=== PATIENT | male | born 1975 | race Caucasian/White ===

== ENCOUNTER 2017-11-03 09:43 | Emergency (ER) | payer MEDICAID, OTHER ==
[~2017-11-03] VITALS: Ht 162.6 cm; Wt 86.0 kg
[2017-11-03 16:49] VITALS: BP 120/85
== END 2017-11-03 16:51 | disposition home or self-care (01) ==
LOC: ER 10:43
DX: R05 Cough (principal); T14.8XXA Other injury of unspecified body region, initial encounter; X58.XXXA Exposure to other specified factors, initial encounter; Y93.89 Activity, other specified; Y92.89 Other specified places as the place of occurrence of the external cause; I10 Essential (primary) hypertension; F17.210 Nicotine dependence, cigarettes, uncomplicated
CPT/HCPCS: 71045; 99283

== ENCOUNTER 2018-07-09 12:17 | Emergency (ER) | payer OTHER ==
[~2018-07-09] VITALS: Ht 162.6 cm; Wt 86.5 kg
[2018-07-09] MEDS ORDERED: SODIUM CHLORIDE 0.9% 1,000 ML IV ONE (18:38)
[2018-07-09] MEDS ORDERED: ONDANSETRON HCL 4MG/2ML INJ IV STA (18:38)
[2018-07-09 19:54] LABS: BASOPHILS % 0.9 % (0.0-2.0); EOSINOPHILS % 1.8 % (0.0-5.0); HEMOGLOBIN. 15.7 g/dL (14.0-18.0); LYMPHOCYTES % 27.4 % (20.0-50.0); MEAN CORPUSCULAR HEMOGLOBIN 31.7 pg (28.0-32.0); MEAN CORPUSCULAR VOLUME 92.9 fL (80.0-94.0); MEAN PLATELET VOLUME 8.3 fl (7.4-10.4); MONOCYTES % 12.4 % (2.0-8.0); NEUTROPHILS % 57.5 % (40.0-76.0); PLATELET 170 x1000/uL (130-400); RED BLOOD CELL COUNT 4.95 mill/uL (4.7-6.1); RED CELL DISTRIBUTION WIDTH 12.8 % (11.6-14.6)
[2018-07-09 20:01] LABS: CHLORIDE 103 mEq/L (98-107)
[2018-07-09 20:24] LABS: CLARITY URINE CLEAR (CLEAR); COLOR URINE YELLOW (YELLOW); KETONES URINE NEGATIVE (NEGATIVE); LEUKOCYTE ESTERASE URINE NEGATIVE (NEGATIVE); NITRITE URINE NEGATIVE (NEGATIVE); OCCULT BLOOD URINE NEGATIVE (NEGATIVE); PH URINE 6.5 (4.5-8.0); PROTEIN URINE NEGATIVE (NEGATIVE); SPECIFIC GRAVITY URINE 1.013 (1.005-1.030)
[2018-07-09 21:15] VITALS: BP 135/95
== END 2018-07-09 21:22 | disposition home or self-care (01) ==
LOC: ER 13:40
DX: J98.9 Respiratory disorder, unspecified (principal); B97.89 Other viral agents as the cause of diseases classified elsewhere; I10 Essential (primary) hypertension; F17.200 Nicotine dependence, unspecified, uncomplicated; R11.10 Vomiting, unspecified
CPT/HCPCS: 36415; 71045; 80053; 81003; 85025; 87804; 96361; 96374; 99284; J2405; J7030

== ENCOUNTER 2020-07-09 08:57 | Emergency (ER) | payer OTHER ==
[~2020-07-09] VITALS: Ht 162.6 cm; Wt 91.0 kg
[2020-07-09] MEDS ORDERED: ONDANSETRON 4MG ODT PO STA (09:08)
[2020-07-09 09:41] LABS: BASOPHILS % 1.2 % (0.0-2.0); EOSINOPHILS % 0.6 % (0.0-5.0); HEMATOCRIT. 32.7 % (42.0-52.0); HEMOGLOBIN. 9.9 g/dL (14.0-18.0); LYMPHOCYTES % 25.6 % (20.0-50.0); MEAN CORPUSCULAR HEMOGLOBIN 19.3 pg (28.0-32.0); MEAN CORPUSCULAR VOLUME 64.2 fL (80.0-94.0); MEAN PLATELET VOLUME 8.4 fl (7.4-10.4); MONOCYTES % 13.6 % (2.0-8.0); PLATELET 317 x1000/uL (130-400); RED CELL DISTRIBUTION WIDTH 21.6 % (11.6-14.6)
[2020-07-09 09:47] LABS: CHLORIDE 100 mEq/L (98-107)
[2020-07-09 09:50] LABS: INR 1.1; PROTHROMBIN TIME 11.2 sec (9.6-11.0)
[2020-07-09 10:49] LABS: PLATELET ESTIMATE NORMAL
[2020-07-09 13:18] LABS: CLARITY URINE CLEAR (CLEAR); COLOR URINE ORANGE (YELLOW); KETONES URINE 1+ (NEGATIVE); LEUKOCYTE ESTERASE URINE 1+ (NEGATIVE); NITRITE URINE POSITIVE (NEGATIVE); OCCULT BLOOD URINE NEGATIVE (NEGATIVE); PH URINE 6.5 (4.5-8.0); PROTEIN URINE 2+ (NEGATIVE)
[2020-07-09] MEDS ORDERED: MAGNESIUM/ALUMINUM HYDROXIDE/SIMETHICONE 30ML UDC PO STA (13:32)
[2020-07-09 14:09] LABS: *AMPHETAMINES SCREEN URINE NEGATIVE (NEGATIVE); *BARBITURATES SCREEN URINE NEGATIVE (NEGATIVE); *BENZODIAZEPINES SCREEN URINE NEGATIVE (NEGATIVE); *COCAINE SCREEN URINE NEGATIVE (NEGATIVE); METHADONE URINE SCREEN NEGATIVE (NEGATIVE); OPIATES URINE SCREEN NEGATIVE (NEGATIVE)
[2020-07-09 14:11] LABS: CANNABINOID URINE SCREEN NEGATIVE (NEGATIVE); PHENCYCLIDINE URINE SCREEN NEGATIVE (NEGATIVE)
[2020-07-09] MEDS ORDERED: SODIUM CHLORIDE 0.9% 1,000 ML IV ONE (14:15)
[2020-07-09] MEDS ORDERED: CEFTRIAXONE 1 G PREMIX 50 ML IV ONE (14:15)
[2020-07-09] MEDS ORDERED: ONDANSETRON HCL 4MG/2ML INJ IV ONE (14:15)
[2020-07-09] MEDS ORDERED: CEFTRIAXONE SODIUM 500 MG/VIAL IM ONE (14:30)
[2020-07-09 14:44] VITALS: BP 167/97
== END 2020-07-09 14:46 | disposition home or self-care (01) ==
LOC: ER 08:57
DX: N39.0 Urinary tract infection, site not specified (principal); R00.0 Tachycardia, unspecified; I10 Essential (primary) hypertension; D50.9 Iron deficiency anemia, unspecified
CPT/HCPCS: 36415; 80053; 80305; 81003; 83605; 83690; 84484; 85025; 85610; 96372; 99283; J0696; J7030; Q0162

== ENCOUNTER 2020-07-22 11:48 | Inpatient (IN) | payer OTHER ==
[~2020-07-22] VITALS: Ht 162.6 cm; Wt 93.6 kg
[2020-07-22] MEDS ORDERED: LABETALOL 5MG/ML SYR 20 MG/4 ML SYRINGE IV ONE (12:30)
[2020-07-22 12:57] LABS: BASOPHILS % 0.9 % (0.0-2.0); HEMATOCRIT. 31.8 % (42.0-52.0); HEMOGLOBIN. 9.6 g/dL (14.0-18.0); MEAN CORPUSCULAR HEMOGLOBIN 19.3 pg (28.0-32.0); MEAN CORPUSCULAR VOLUME 63.8 fL (80.0-94.0); MEAN PLATELET VOLUME 8.4 fl (7.4-10.4); MONOCYTES % 5.4 % (2.0-8.0); NEUTROPHILS % 82.7 % (40.0-76.0); PLATELET 342 x1000/uL (130-400); RED BLOOD CELL COUNT 4.99 mill/uL (4.7-6.1); RED CELL DISTRIBUTION WIDTH 21.8 % (11.6-14.6)
[2020-07-22 13:05] LABS: CHLORIDE 104 mEq/L (98-107)
[2020-07-22 13:09] LABS: ETHANOL BLOOD < 10 mg/dL
[2020-07-22 13:25] LABS: PLATELET ESTIMATE NORMAL
[2020-07-22 14:05] LABS: CLARITY URINE CLEAR (CLEAR); COLOR URINE YELLOW (YELLOW); KETONES URINE NEGATIVE (NEGATIVE); LEUKOCYTE ESTERASE URINE NEGATIVE (NEGATIVE); NITRITE URINE NEGATIVE (NEGATIVE); OCCULT BLOOD URINE NEGATIVE (NEGATIVE); PROTEIN URINE NEGATIVE (NEGATIVE); SPECIFIC GRAVITY URINE 1.016 (1.005-1.030); UROBILINOGEN URINE 0.2 E.U./dL (0.2-1.0)
[2020-07-22] MEDS ORDERED: SODIUM CHLORIDE 0.9% 1,000 ML IV ONE (14:30)
[2020-07-22 14:31] LABS: *AMPHETAMINES SCREEN URINE NEGATIVE (NEGATIVE); *BARBITURATES SCREEN URINE NEGATIVE (NEGATIVE); *BENZODIAZEPINES SCREEN URINE NEGATIVE (NEGATIVE)
[2020-07-22 14:32] LABS: *COCAINE SCREEN URINE NEGATIVE (NEGATIVE); CANNABINOID URINE SCREEN NEGATIVE (NEGATIVE); METHADONE URINE SCREEN NEGATIVE (NEGATIVE); OPIATES URINE SCREEN NEGATIVE (NEGATIVE); PHENCYCLIDINE URINE SCREEN NEGATIVE (NEGATIVE)
[2020-07-22] MEDS ORDERED: ACETAMINOPHEN 325MG TABLET PO PRN ×2 (15:45)
[2020-07-22] MEDS ORDERED: NITROGLYCERIN 0.4MG TABLET SL SL PRN (15:45)
[2020-07-22] MEDS ORDERED: MAGNESIUM/ALUMINUM HYDROXIDE/SIMETHICONE 30ML UDC PO PRN (15:45)
[2020-07-22] MEDS ORDERED: CLONIDINE 0.1MG TABLET PO PRN (15:45)
[2020-07-22] MEDS ORDERED: ONDANSETRON HCL 4MG/2ML INJ IV PRN (15:45)
[2020-07-22] MEDS ORDERED: POTASSIUM CHLORIDE 20MEQ TABLET SR PO NR (15:45)
[2020-07-22] MEDS ORDERED: IPRATROPIUM/ALBUTEROL 0.5-3(2.5)MG/3ML NEB NEB PRN (15:45)
[2020-07-22] MEDS ORDERED: KETOROLAC 15MG/ML VIAL IV PRN (15:45)
[2020-07-22] MEDS ORDERED: GUAIFENESIN 200MG/10ML SUGAR FREE UDC PO PRN (15:45)
[2020-07-22] MEDS ORDERED: ZOLPIDEM TARTRATE 5MG TABLET PO PRN (15:45)
[2020-07-22] MEDS ORDERED: DOCUSATE SODIUM 100MG CAPSULE PO PRN (15:45)
[2020-07-22] MEDS ORDERED: ENOXAPARIN 40MG/0.4ML SYR SUBCUT SCH (16:00)
[2020-07-22] MEDS ORDERED: ASPIRIN 325MG EC TABLET PO SCH (16:00)
[2020-07-22 16:21] LABS: FOLIC ACID (FOLATE) SERUM 6.1 ng/mL (>5.38)
[2020-07-22] MEDS: DEXT 5%/LACTATED RINGERS 1,000 ML IV SCH (16:30)
[2020-07-22 17:51] LABS: HEMATOCRIT 28.5 % (42.0-52.0); HEMOGLOBIN 8.5 g/dL (14.0-18.0); MEAN CORPUSCULAR HEMOGLOBIN 19.2 pg (28.0-32.0); MEAN CORPUSCULAR VOLUME 64.5 fL (80.0-94.0); PLATELET 297 x1000/uL (130-400); RED BLOOD CELL COUNT 4.42 mill/uL (4.7-6.1); RED CELL DISTRIBUTION WIDTH 22.2 % (11.6-14.6)
[2020-07-22] MEDS ORDERED: PANTOPRAZOLE 80 MG in SODIUM CHLORIDE 0.9% 100 ML IV SCH (18:00)
[2020-07-22 18:09] LABS: INR 1.1; PROTHROMBIN TIME 11.7 sec (9.6-11.0)
[2020-07-22] MEDS: PANTOPRAZOLE 80 MG in SODIUM CHLORIDE 0.9% 100 ML IV SCH (18:49)
[2020-07-22] MEDS ORDERED: FAMOTIDINE 20MG TABLET PO SCH (21:00)
[2020-07-22] MEDS ORDERED: ASCORBIC ACID 500 MG TABLET PO SCH (21:00)
[2020-07-23 00:19] LABS: CREATINE KINASE 218 IU/L (39-308)
[2020-07-23 00:20] LABS: CREATINE KINASE MB FRACTION 2.5 ng/mL (0.5-3.6)
[2020-07-23 04:38] LABS: BASOPHILS % 0.9 % (0.0-2.0); EOSINOPHILS % 0.3 % (0.0-5.0); HEMATOCRIT. 28.7 % (42.0-52.0); HEMOGLOBIN. 8.6 g/dL (14.0-18.0); LYMPHOCYTES % 30.7 % (20.0-50.0); MEAN CORPUSCULAR HEMOGLOBIN 19.3 pg (28.0-32.0); MEAN CORPUSCULAR VOLUME 64.4 fL (80.0-94.0); MEAN PLATELET VOLUME 8.3 fl (7.4-10.4); MONOCYTES % 8.9 % (2.0-8.0); NEUTROPHILS % 59.2 % (40.0-76.0); PLATELET 283 x1000/uL (130-400); RED BLOOD CELL COUNT 4.46 mill/uL (4.7-6.1); RED CELL DISTRIBUTION WIDTH 22.5 % (11.6-14.6)
[2020-07-23] MEDS: PANTOPRAZOLE 80 MG in SODIUM CHLORIDE 0.9% 100 ML IV SCH ×2 (04:40→14:00)
[2020-07-23 04:41] LABS: CHLORIDE 107 mEq/L (98-107)
[2020-07-23 04:49] LABS: PHOSPHORUS 2.8 mg/dL (2.5-4.9)
[2020-07-23 04:52] LABS: CREATINE KINASE 214 IU/L (39-308)
[2020-07-23 04:55] LABS: CREATINE KINASE MB FRACTION 2.6 ng/mL (0.5-3.6)
[2020-07-23] MEDS ORDERED: CHOLECALCIFEROL (D3) 1000 UNIT TABLET PO SCH (09:00)
[2020-07-23] MEDS ORDERED: ZINC SULFATE 220 MG ( 50 ) CAPSULE PO SCH (09:00)
[2020-07-23] MEDS: METOPROLOL TARTRATE 25MG TABLET PO SCH ×2 (22:22→22:23)
[2020-07-24] MEDS: PANTOPRAZOLE 80 MG in SODIUM CHLORIDE 0.9% 100 ML IV SCH ×3 (00:36→22:15)
[2020-07-24 04:05] LABS: BASOPHILS % 1.2 % (0.0-2.0); EOSINOPHILS % 0.9 % (0.0-5.0); HEMATOCRIT. 30.1 % (42.0-52.0); HEMOGLOBIN. 8.9 g/dL (14.0-18.0); LYMPHOCYTES % 20.9 % (20.0-50.0); MEAN CORPUSCULAR VOLUME 64.2 fL (80.0-94.0); MEAN PLATELET VOLUME 8.5 fl (7.4-10.4); MONOCYTES % 8.7 % (2.0-8.0); NEUTROPHILS % 68.3 % (40.0-76.0); PLATELET 302 x1000/uL (130-400); RED BLOOD CELL COUNT 4.69 mill/uL (4.7-6.1); RED CELL DISTRIBUTION WIDTH 21.7 % (11.6-14.6)
[2020-07-24 04:13] LABS: CHLORIDE 105 mEq/L (98-107)
[2020-07-24 04:41] LABS: PLATELET ESTIMATE NORMAL
[2020-07-24 05:50] VITALS: BP 140/91
[2020-07-24 08:00] VITALS: BP 127/76
[2020-07-24] MEDS: METOPROLOL TARTRATE 25MG TABLET PO SCH ×2 (09:10→22:13)
[2020-07-24 11:37] LABS: FERRITIN 22 ng/mL (22-322)
[2020-07-24 11:48] LABS: HEPATITIS B SURFACE ANTIGEN NEGATIVE
[2020-07-24 12:00] VITALS: BP 110/70
[2020-07-24 12:18] LABS: HEPATITIS A AB IGM NEGATIVE (NEGATIVE)
[2020-07-24 18:11] VITALS: BP 110/71
[2020-07-24] MEDS: DEXT 5%/LACTATED RINGERS 1,000 ML IV SCH (18:36)
[2020-07-24 20:00] VITALS: BP 124/76
[2020-07-24] MEDS ORDERED: PANTOPRAZOLE SODIUM 40 MG/VIAL IV ONE (21:09)
[2020-07-25] VITALS: BP 138/75
[2020-07-25] MEDS: DEXT 5%/LACTATED RINGERS 1,000 ML IV SCH ×3 (00:01→16:37)
[2020-07-25 04:00] VITALS: BP 114/71
[2020-07-25 08:00] VITALS: BP 151/82
[2020-07-25] MEDS: METOPROLOL TARTRATE 25MG TABLET PO SCH (09:25)
[2020-07-25] MEDS: PANTOPRAZOLE 80 MG in SODIUM CHLORIDE 0.9% 100 ML IV SCH ×2 (09:25→15:44)
[2020-07-25] MEDS: IRON SUCROSE COMPLEX 100 MG/5 ML ML IV SCH (10:42)
[2020-07-25 12:00] VITALS: BP 101/60
[2020-07-25 16:00] VITALS: BP 127/82
[2020-07-25 20:00] VITALS: BP 109/64
[2020-07-26] VITALS: BP 134/76
[2020-07-26] MEDS: METOPROLOL TARTRATE 25MG TABLET PO SCH ×2 (01:08→09:08)
[2020-07-26 08:00] VITALS: BP 120/82
[2020-07-26] MEDS: DEXT 5%/LACTATED RINGERS 1,000 ML IV SCH (08:30)
[2020-07-26] MEDS: IRON SUCROSE COMPLEX 100 MG/5 ML ML IV SCH (09:08)
[2020-07-26 10:19] VITALS: BP 120/82
[2020-07-26 10:43] LABS: BASOPHILS % 1.6 % (0.0-2.0); EOSINOPHILS % 2.2 % (0.0-5.0); HEMATOCRIT. 29.1 % (42.0-52.0); HEMOGLOBIN. 8.7 g/dL (14.0-18.0); LYMPHOCYTES % 18.1 % (20.0-50.0); MEAN CORPUSCULAR HEMOGLOBIN 19.9 pg (28.0-32.0); MEAN CORPUSCULAR VOLUME 66.4 fL (80.0-94.0); MEAN PLATELET VOLUME 8.8 fl (7.4-10.4); MONOCYTES % 9.3 % (2.0-8.0); NEUTROPHILS % 68.8 % (40.0-76.0); PLATELET 270 x1000/uL (130-400); RED BLOOD CELL COUNT 4.38 mill/uL (4.7-6.1); RED CELL DISTRIBUTION WIDTH 21.2 % (11.6-14.6)
[2020-07-26 12:00] VITALS: BP 111/81
[2020-07-26] MEDS: PANTOPRAZOLE 80 MG in SODIUM CHLORIDE 0.9% 100 ML IV SCH (12:00)
== END 2020-07-26 12:05 | disposition home or self-care (01) | DRG 312 ==
LOC: ER 11:48 → MICUSO 14:37 → SUPCPDRO 16:27 → 5WST 07-23 14:43 → MICUSO 07-23 16:05 → 5WST 07-24 04:05
PROVIDERS: ADMIT Internal Medicine; ATTEND Internal Medicine
DX: R55 Syncope and collapse (principal); E87.2 Acidosis; D50.9 Iron deficiency anemia, unspecified; E87.6 Hypokalemia; I10 Essential (primary) hypertension; F10.10 Alcohol abuse, uncomplicated; M54.9 Dorsalgia, unspecified
CPT/HCPCS: 36415; 71045; 76700; 80053; 80061; 80305; 80320; 81003; 82270; 82550; 82553; 82607; 82728; 82746; 83036; 83540; 83550; 83605; 83735; 83880; 84100; 84145; 84484; 85025; 85027; 85379; 86705; 86709; 86803; 86850; 86900; 87340; 93005; 93970; 96372; 99285; C9113; J1650; J7030; J7050; G0480

== ENCOUNTER 2020-07-28 08:50 | Emergency (ER) | payer OTHER ==
[~2020-07-28] VITALS: Ht 162.6 cm; Wt 92.0 kg
[2020-07-28] MEDS ORDERED: IBUPROFEN 600MG TABLET PO ONE (09:30)
[2020-07-28 09:55] VITALS: BP 131/95
== END 2020-07-28 09:57 | disposition home or self-care (01) ==
LOC: ER 08:50
DX: M79.622 Pain in left upper arm (principal); I80.9 Phlebitis and thrombophlebitis of unspecified site; I10 Essential (primary) hypertension
CPT/HCPCS: 93005; 99283

== ENCOUNTER 2021-06-10 01:55 | Emergency (ER) | payer MEDICAID, OTHER ==
[~2021-06-10] VITALS: Ht 162.6 cm; Wt 91.0 kg
[2021-06-10] MEDS ORDERED: HYDROCODONE/ACETAMINOPHEN 5/325MG TABLET PO ONE (03:45)
[2021-06-10 03:54] VITALS: BP 153/91
[2021-06-10] MEDS ORDERED: T3 PO (04:00)
== END 2021-06-10 04:19 | disposition home or self-care (01) ==
LOC: ER 01:55
DX: S60.011A Contusion of right thumb without damage to nail, initial encounter (principal); W22.8XXA Striking against or struck by other objects, initial encounter; Y93.89 Activity, other specified; Y92.89 Other specified places as the place of occurrence of the external cause
CPT/HCPCS: 29130; 73140; 99283

== ENCOUNTER 2021-07-12 08:33 | Inpatient (IN) | payer MEDICAID ==
[~2021-07-12] VITALS: Ht 162.6 cm; Wt 94.8 kg
[~2021-07-12 08:33] MED LIST: T3 PO
[2021-07-12] MEDS ORDERED: ONDANSETRON HCL 4MG/2ML INJ IV STA (08:35)
[2021-07-12] MEDS ORDERED: SODIUM CHLORIDE 0.9% 1,000 ML IV ONE ×2 (08:45→12:15)
[2021-07-12 09:16] LABS: BASOPHILS % 2.9 % (0.0-2.0); EOSINOPHILS % 0.3 % (0.0-5.0); HEMATOCRIT. 31.3 % (42.0-52.0); HEMOGLOBIN. 9.6 g/dL (14.0-18.0); LYMPHOCYTES % 30.3 % (20.0-50.0); MEAN CORPUSCULAR HEMOGLOBIN 19.3 pg (28.0-32.0); MEAN CORPUSCULAR VOLUME 62.7 fL (80.0-94.0); MEAN PLATELET VOLUME 8.5 fl (7.4-10.4); MONOCYTES % 12.2 % (2.0-8.0); NEUTROPHILS % 54.3 % (40.0-76.0); PLATELET 325 x1000/uL (130-400); RED BLOOD CELL COUNT 4.99 mill/uL (4.7-6.1); RED CELL DISTRIBUTION WIDTH 24.4 % (11.6-14.6)
[2021-07-12 09:23] LABS: CHLORIDE 102 mEq/L (98-107)
[2021-07-12] MEDS ORDERED: ACETAMINOPHEN 325MG TABLET PO ONE (09:30)
[2021-07-12] MEDS ORDERED: ONDANSETRON HCL 4MG/2ML INJ IV ONE (09:45)
[2021-07-12 09:50] LABS: PLATELET ESTIMATE NORMAL
[2021-07-12] MEDS ORDERED: KETOROLAC 30MG/ML VIAL IV ONE (10:15)
[2021-07-12] MEDS ORDERED: LORAZEPAM 2MG/ML CPJ IV ONE (11:00)
[2021-07-12 12:22] LABS: CLARITY URINE CLEAR (CLEAR); COLOR URINE DARK YELLOW (YELLOW); KETONES URINE TRACE (NEGATIVE); LEUKOCYTE ESTERASE URINE TRACE (NEGATIVE); NITRITE URINE NEGATIVE (NEGATIVE); OCCULT BLOOD URINE NEGATIVE (NEGATIVE); PROTEIN URINE 1+ (NEGATIVE); SPECIFIC GRAVITY URINE 1.032 (1.005-1.030)
[2021-07-12] MEDS ORDERED: AZITHROMYCIN 500MG/250ML 250 ML IV ONE (12:45)
[2021-07-12] MEDS ORDERED: CEFTRIAXONE 1 G PREMIX 50 ML IV ONE (12:45)
[2021-07-12 12:56] LABS: *AMPHETAMINES SCREEN URINE NEGATIVE (NEGATIVE); *BARBITURATES SCREEN URINE NEGATIVE (NEGATIVE); *BENZODIAZEPINES SCREEN URINE NEGATIVE (NEGATIVE); *COCAINE SCREEN URINE NEGATIVE (NEGATIVE)
[2021-07-12 12:57] LABS: CANNABINOID URINE SCREEN NEGATIVE (NEGATIVE); OPIATES URINE SCREEN NEGATIVE (NEGATIVE); PHENCYCLIDINE URINE SCREEN NEGATIVE (NEGATIVE)
[2021-07-12 12:59] LABS: METHADONE URINE SCREEN NEGATIVE (NEGATIVE)
[2021-07-12] MEDS: ONDANSETRON HCL 4MG/2ML INJ IV PRN (20:39)
[2021-07-12 23:16] VITALS: BP 137/78
[2021-07-13] MEDS ORDERED: CEFTRIAXONE 1 G PREMIX 50 ML IV SCH
[2021-07-13] MEDS ORDERED: IPRATROPIUM/ALBUTEROL 0.5-3(2.5)MG/3ML NEB HHN PRN
[2021-07-13] MEDS ORDERED: ACETAMINOPHEN 325MG TABLET PO PRN
[2021-07-13] MEDS ORDERED: POTASSIUM CHLORIDE 20MEQ TABLET SR PO NR (00:30)
[2021-07-13] MEDS: ONDANSETRON HCL 4MG/2ML INJ IV PRN (05:14)
[2021-07-13 07:55] LABS: CHLORIDE 107 mEq/L (98-107)
[2021-07-13 08:00] VITALS: BP 134/78
[2021-07-13 08:03] LABS: EOSINOPHILS % 0.4 % (0.0-5.0); HEMATOCRIT. 26.1 % (42.0-52.0); HEMOGLOBIN. 7.8 g/dL (14.0-18.0); LYMPHOCYTES % 27.3 % (20.0-50.0); MEAN CORPUSCULAR HEMOGLOBIN 19.2 pg (28.0-32.0); MEAN CORPUSCULAR VOLUME 64.5 fL (80.0-94.0); MEAN PLATELET VOLUME 8.6 fl (7.4-10.4); MONOCYTES % 13.9 % (2.0-8.0); NEUTROPHILS % 57.4 % (40.0-76.0); PLATELET 215 x1000/uL (130-400); RED BLOOD CELL COUNT 4.04 mill/uL (4.7-6.1); RED CELL DISTRIBUTION WIDTH 23.9 % (11.6-14.6)
[2021-07-13] MEDS: LOSARTAN POTASSIUM 50 MG TABLET PO SCH (11:12)
[2021-07-13 12:00] VITALS: BP 127/76
[2021-07-13] MEDS: CEFTRIAXONE 1,000 MG in DEXTROSE 5% WATER 50 ML IV SCH (13:40)
[2021-07-13] MEDS: AZITHROMYCIN 500 MG in DEXT 5% WATER 250 ML IV SCH (14:39)
[2021-07-13 15:51] VITALS: BP 113/62
[2021-07-13 20:00] VITALS: BP 115/87
[2021-07-13 22:00] VITALS: BP_SYST 124
[2021-07-14] VITALS: BP 113/73
[2021-07-14 04:00] VITALS: BP 118/68
[2021-07-14 08:00] VITALS: BP 127/87
[2021-07-14] MEDS: LOSARTAN POTASSIUM 50 MG TABLET PO SCH (09:15)
[2021-07-14 12:00] VITALS: BP 117/78
[2021-07-14] MEDS: AZITHROMYCIN 500 MG in DEXT 5% WATER 250 ML IV SCH (12:55)
[2021-07-14] MEDS: CEFTRIAXONE 1,000 MG in DEXTROSE 5% WATER 50 ML IV SCH (12:55)
[2021-07-14 16:00] VITALS: BP 130/81
[2021-07-14 16:32] LABS: HEMATOCRIT 27.8 % (42.0-52.0); HEMOGLOBIN 8.2 g/dL (14.0-18.0)
[2021-07-14 17:05] LABS: TOTAL IRON BINDING CAPACITY 407 ug/dL (250-450)
[2021-07-14 17:09] VITALS: BP 130/81
== END 2021-07-14 18:10 | disposition home or self-care (01) | DRG 139 ==
LOC: ER 08:33 → 5WST 12:37 → ENRESERV 21:21
PROVIDERS: ADMIT Internal Medicine; ATTEND Internal Medicine
DX: J15.9 Unspecified bacterial pneumonia (principal); D64.9 Anemia, unspecified; E87.6 Hypokalemia; E66.9 Obesity, unspecified; I10 Essential (primary) hypertension; Z20.822 Contact with and (suspected) exposure to COVID-19; Z82.49 Family history of ischemic heart disease and other diseases of the circulatory system; Z79.899 Other long term (current) drug therapy; Z68.35 Body mass index [BMI] 35.0-35.9, adult; Z71.3 Dietary counseling and surveillance; Z86.19 Personal history of other infectious and parasitic diseases
CPT/HCPCS: 36415; 71045; 80048; 80053; 80305; 81003; 82728; 83540; 83550; 83605; 84484; 85014; 85018; 85025; 87426; 93005; 99291; J0456; J0696; J1885; J2060; J2405; J7030; J7060

== ENCOUNTER 2024-03-06 21:10 | Emergency (ER) | payer SELFPAY ==
[~2024-03-06] VITALS: Ht 162.6 cm; Wt 82.0 kg
[2024-03-06 22:01] VITALS: O2SAT 98
[2024-03-07] MEDS ORDERED: IPRATROPIUM/ALBUTEROL 0.5-3(2.5)MG/3ML NEB HHN ONE
[2024-03-07] MEDS ORDERED: METH-653 MT (00:06)
[2024-03-07] MEDS ORDERED: LIDO700A15 TP (00:06)
[2024-03-07] MEDS: KETOROLAC 15MG/ML VIAL IM ONE (00:18)
[2024-03-07] MEDS: CYCLOBENZAPRINE 10MG TABLET PO ONE (00:18)
[2024-03-07] MEDS: LIDOCAINE 5% PATCH TOP SCH (00:19)
[2024-03-07 00:30] VITALS: BP 148/72; PULSE 66; RESP 17; TEMP 36.78072; O2SAT 100
== END 2024-03-07 02:05 | disposition home or self-care (01) ==
LOC: ER 21:10
DX: M54.6 Pain in thoracic spine (principal); I10 Essential (primary) hypertension; Z90.49 Acquired absence of other specified parts of digestive tract; Z79.899 Other long term (current) drug therapy
CPT/HCPCS: 99283; 96372; J1885

== ENCOUNTER 2024-06-13 19:49 | Inpatient (IN) | payer SELFPAY ==
[~2024-06-13] VITALS: Ht 167.6 cm; Wt 81.6 kg
[2024-06-13] MEDS: KCL 20MEQ/100ML PREMIX 100 ML IV SCH (01:59)
[~2024-06-13 19:49] MED LIST changes: +LIDO700A15 TP; +METH-653 MT
[2024-06-13 20:52] LABS: CARBON DIOXIDE 26 mEq/L (21-32); CHLORIDE 101 mEq/L (98-107); SODIUM 139 mEq/L (136-145)
[2024-06-13 20:53] LABS: CALCIUM 8.8 mg/dL (8.7-10.4)
[2024-06-13 20:54] LABS: HEMATOCRIT. 29.1 % (42.0-52.0); HEMOGLOBIN. 8.4 g/dL (14.0-18.0); MEAN CORPUSCULAR HEMOGLOBIN 19.2 pg (28.0-32.0); MEAN CORPUSCULAR HGB CONC 28.7 g/dL (31.0-37.0); MEAN CORPUSCULAR VOLUME 66.8 fL (80.0-94.0); MEAN PLATELET VOLUME 8.2 fl (7.4-10.4); PLATELET 170 x1000/uL (130-400); RED BLOOD CELL COUNT 4.36 mill/uL (4.7-6.1); RED CELL DISTRIBUTION WIDTH 24.2 % (11.6-14.6); WHITE BLOOD COUNT 4.9 x1000/uL (4.5-11.0)
[2024-06-13 20:55] LABS: DIFFERENTIAL COMMENT 1
[2024-06-13 20:58] LABS: CREATININE 0.9 mg/dL (0.6-1.3); GLUCOSE 164 mg/dL (70-105); UREA NITROGEN BLOOD 8 mg/dL (9-23)
[2024-06-13 20:59] LABS: TROPONIN I HIGH SENSITIVITY 6 ng/L (3.0-53)
[2024-06-13] MEDS: ONDANSETRON HCL 4MG/2ML INJ IV ONE ×2 (20:59→23:23)
[2024-06-13] MEDS: LORAZEPAM 2MG/ML INJ IV ONE (20:59)
[2024-06-13] MEDS: ASPIRIN 325MG TABLET PO ONE (21:00)
[2024-06-13] MEDS: SODIUM CHLORIDE 0.9% 1,000 ML IV ONE (21:00)
[2024-06-13 21:15] LABS: D-DIMER 0.31 mg/L FEU (<0.50); PROTHROMBIN TIME 11.5 sec (9.6-11.0)
[2024-06-13 21:16] LABS: ETHANOL BLOOD 190 mg/dL (<10)
[2024-06-13 21:18] LABS: ALANINE AMINOTRANSFERASE 33 IU/L (10-49); ALBUMIN 4.3 g/dL (3.2-4.8); ASPARTATE AMINOTRANSFERASE 62 IU/L (<34); BILIRUBIN DIRECT 0.2 mg/dL (<=3.0); BILIRUBIN TOTAL 0.7 mg/dL (0.1-1.0)
[2024-06-13] MEDS: MAGNESIUM 2 G PREMIX 50 ML IV ONE (21:45)
[2024-06-13 22:21] LABS: ANISOCYTOSIS 2+; HYPOCHROMASIA 2+; MICROCYTOSIS 3+; PLATELET ESTIMATE NORMAL
[2024-06-14] MEDS: MAGNESIUM 2 G PREMIX 50 ML IV NR (01:00)
[2024-06-14] MEDS ORDERED: ACETAMINOPHEN 325MG TABLET PO PRN ×2 (02:30)
[2024-06-14] MEDS ORDERED: ONDANSETRON HCL 4MG/2ML INJ IV PRN (02:30)
[2024-06-14] MEDS ORDERED: DEXTROSE 50% WATER 50ML SYRINGE IV PRN (02:30)
[2024-06-14] MEDS ORDERED: MAGNESIUM/ALUMINUM HYDROXIDE/SIMETHICONE 30ML UDC PO PRN (02:30)
[2024-06-14] MEDS ORDERED: DOCUSATE SODIUM 100MG CAPSULE PO PRN (02:30)
[2024-06-14] MEDS ORDERED: CLONIDINE 0.1MG TABLET PO PRN (02:30)
[2024-06-14] MEDS ORDERED: LORAZEPAM 1MG TABLET PO PRN (02:30)
[2024-06-14] MEDS ORDERED: PHENOBARBITAL 60MG TABLET PO PRN (02:30)
[2024-06-14] MEDS ORDERED: IPRATROPIUM/ALBUTEROL 0.5-3(2.5)MG/3ML NEB HHN PRN (02:30)
[2024-06-14] MEDS ORDERED: LORAZEPAM 2MG/ML INJ IV PRN ×2 (03:00)
[2024-06-14] MEDS: PANTOPRAZOLE SODIUM 40 MG/VIAL IV SCH (03:20)
[2024-06-14 03:27] LABS: IRON 71 ug/dL (65-175)
[2024-06-14 03:29] LABS: PHOSPHORUS 2.8 mg/dL (2.5-4.9)
[2024-06-14 03:30] LABS: TOTAL IRON BINDING CAPACITY 424 ug/dl (250-425); TROPONIN I HIGH SENSITIVITY 8 ng/L (3.0-53)
[2024-06-14 03:36] LABS: FOLIC ACID (FOLATE) SERUM 9.05 ng/mL (>5.38)
[2024-06-14 04:10] VITALS: BP 154/81; PULSE 97; RESP 19; TEMP 36.418
[2024-06-14] MEDS: FOLIC ACID 1 MG, THIAMINE HCL 100 MG, MVI, ADULT NO.1 10 ML in DEXTROSE 5% WATER 1,000 ML IV ONE (04:30)
[2024-06-14 04:51] LABS: VITAMIN B12 SERUM 702 pg/mL (211-911)
[2024-06-14] MEDS ORDERED: IOHEXOL-350 100 ML BOTTLE ONE (05:13)
[2024-06-14 06:15] LABS: *AMPHETAMINES SCREEN URINE NEGATIVE (NEGATIVE); *BARBITURATES SCREEN URINE NEGATIVE (NEGATIVE); *BENZODIAZEPINES SCREEN URINE NEGATIVE (NEGATIVE); *COCAINE SCREEN URINE NEGATIVE (NEGATIVE); CANNABINOID URINE SCREEN NEGATIVE (NEGATIVE); ECSTASY MDMA SCREEN URINE NEGATIVE (NEGATIVE); METHADONE URINE SCREEN NEGATIVE (NEGATIVE); OPIATES URINE SCREEN NEGATIVE (NEGATIVE); PHENCYCLIDINE URINE SCREEN NEGATIVE (NEGATIVE)
[2024-06-14 06:18] LABS: FERRITIN 4 ng/mL (22-322)
[2024-06-14] MEDS: BLOOD SUGAR DIAGNOSTIC STRIP TEST SCH (06:54)
[2024-06-14 06:56] LABS: CLARITY URINE CLEAR (CLEAR); COLOR URINE YELLOW (YELLOW); GLUCOSE URINE NEGATIVE (NEGATIVE); KETONES URINE NEGATIVE (NEGATIVE); OCCULT BLOOD URINE NEGATIVE (NEGATIVE); PH URINE 8.5 (4.5-8.0); PROTEIN URINE 1+ (NEGATIVE)
[2024-06-14 06:57] LABS: LEUKOCYTE ESTERASE URINE NEGATIVE (NEGATIVE); NITRITE URINE NEGATIVE (NEGATIVE)
[2024-06-14 07:12] LABS: RBC URINE 0-2 /hpf (0-2); SQUAMOUS EPITHELIAL CELL URINE NONE SEEN /lpf (RARE/1+); WBC URINE 0-2 /hpf (0-2)
[2024-06-14 07:14] LABS: BACTERIA URINE NONE SEEN
[2024-06-14 08:00] VITALS: BP 146/87; PULSE 102; RESP 19; TEMP 36.9474; O2SAT 98
[2024-06-14] MEDS: MULTIVITAMINS,THER W-MINERALS TABLET PO SCH (08:22)
[2024-06-14] MEDS: LOSARTAN 25 MG TABLET PO SCH (08:22)
[2024-06-14 12:00] VITALS: BP 137/80; PULSE 95; RESP 20; TEMP 36.83628; O2SAT 98
[2024-06-14 12:31] LABS: POTASSIUM 3.3 mEq/L (3.5-5.1)
[2024-06-14 12:39] LABS: PHOSPHORUS 2.5 mg/dL (2.5-4.9)
[2024-06-14 12:42] LABS: T4 FREE 0.91 ng/dL (0.89-1.76); THYROID STIMULATING HORMONE 2.73 uIU/mL (0.55-4.78)
[2024-06-14] MEDS ORDERED: MELA1TAB28 MT (14:30)
[2024-06-14] MEDS ORDERED: THIA100T72 PO (14:30)
[2024-06-14] MEDS ORDERED: FOLI-43 PO (14:30)
[2024-06-14] MEDS ORDERED: PANT40VI PO (14:30)
[2024-06-14] MEDS ORDERED: LOSA25TA26 PO (14:30)
[2024-06-14 14:52] VITALS: BP 137/80; PULSE 95; TEMP 98.3; O2SAT 98
[2024-06-14] MEDS ORDERED: KCL 20MEQ/100ML PREMIX 100 ML IV NR (17:00)
[2024-06-14] MEDS ORDERED: ZOLPIDEM TARTRATE 5MG TABLET PO PRN (21:00)
[2024-06-15] MEDS ORDERED: FOLIC ACID 1MG TABLET PO SCH (09:00)
[2024-06-15] MEDS ORDERED: THIAMINE HCL 100MG TABLET PO SCH (09:00)
== END 2024-06-14 16:00 | disposition home or self-care (01) | DRG 198 ==
LOC: ER 19:49 → 7EST 06-14 00:31
PROVIDERS: ADMIT Preventive Medicine Clinical Informatics; ATTEND Preventive Medicine Clinical Informatics
DX: I24.9 Acute ischemic heart disease, unspecified (principal); D63.8 Anemia in other chronic diseases classified elsewhere; E87.6 Hypokalemia; D50.9 Iron deficiency anemia, unspecified; F10.129 Alcohol abuse with intoxication, unspecified; F10.139 Alcohol abuse with withdrawal, unspecified; G47.00 Insomnia, unspecified; I10 Essential (primary) hypertension; Z79.899 Other long term (current) drug therapy; Z90.49 Acquired absence of other specified parts of digestive tract
CPT/HCPCS: 36415; 71045; 71275; 80048; 80076; 80305; 80320; 81003; 82607; 82728; 82746; 82962; 83036; 83540; 83550; 83735; 83880; 84100; 84132; 84439; 84443; 84484; 85025; 85044; 85379; 93005; 99285; J2060; J2405; J2470; J3411; J3475; J3480; J3490; J7030; J7070; Q9967; G0480

== ENCOUNTER 2025-03-08 13:21 | Inpatient (IN) | payer OTHER ==
[~2025-03-08] VITALS: Ht 172.7 cm; Wt 79.1 kg
[~2025-03-08 13:21] MED LIST changes: +FOLI-43 PO; +LIDO-53 TP; -LIDO700A15 TP; +LOSA25TA26 PO; +MELA1TAB28 MT; +PANT40VI PO; +THIA100T72 PO
[2025-03-08 13:30] VITALS: O2SAT 96
[2025-03-08 14:16] LABS: HEMATOCRIT. 26.9 % (42.0-52.0); HEMOGLOBIN. 8.2 g/dL (14.0-18.0); MEAN PLATELET VOLUME 8.0 fl (7.4-10.4); PLATELET 75 x1000/uL (130-400); RED BLOOD CELL COUNT 3.28 mill/uL (4.7-6.1); RED CELL DISTRIBUTION WIDTH 23.5 % (11.6-14.6)
[2025-03-08] MEDS: SODIUM CHLORIDE 0.9% (SEPSIS BOLUS) IV ONE (14:24)
[2025-03-08] MEDS: CEFTRIAXONE 1GM/50ML 50 ML IV ONE (14:25)
[2025-03-08 14:30] LABS: INR 1.3
[2025-03-08 14:32] LABS: TROPONIN I HIGH SENSITIVITY 7 ng/L (3.0-53); UREA NITROGEN BLOOD < 5 mg/dL (9-23)
[2025-03-08 14:34] LABS: ASPARTATE AMINOTRANSFERASE 144 IU/L (<34); BILIRUBIN DIRECT 2.4 mg/dL (<=3.0); BILIRUBIN TOTAL 3.4 mg/dL (0.1-1.0); CREATININE 0.5 mg/dL (0.6-1.3); ETHANOL BLOOD 300 mg/dL (<10); PROTEIN TOTAL 6.5 g/dL (6.0-8.3)
[2025-03-08 14:58] LABS: EOSINOPHILS % MANUAL 1.0 % (0.0-5.0); LYMPHOCYTES % MANUAL 27.0 % (20.0-50.0); MONOCYTES % MANUAL 9.0 % (2.0-8.0); NEUTROPHILS % MANUAL 63.0 % (45.0-75.0)
[2025-03-08 14:59] LABS: PLATELET ESTIMATE DECREASED
[2025-03-08] MEDS: KCL 20MEQ/100ML PREMIX 100 ML IV SCH (15:40)
[2025-03-08 16:56] LABS: CLARITY URINE CLEAR (CLEAR); COLOR URINE DARK YELLOW (YELLOW); GLUCOSE URINE NEGATIVE (NEGATIVE); KETONES URINE NEGATIVE (NEGATIVE); LEUKOCYTE ESTERASE URINE TRACE (NEGATIVE); NITRITE URINE POSITIVE (NEGATIVE); OCCULT BLOOD URINE NEGATIVE (NEGATIVE); PH URINE 6.5 (4.5-8.0); PROTEIN URINE 2+ (NEGATIVE); SPECIFIC GRAVITY URINE 1.028 (1.005-1.030); UROBILINOGEN URINE 2.0 E.U./dL (0.2-1.0)
[2025-03-08] MEDS: IOHEXOL-350 100 ML BOTTLE ONE (16:58)
[2025-03-08 17:16] LABS: RBC URINE 0-2 /hpf (0-2)
[2025-03-08 17:17] LABS: BACTERIA URINE TRACE; SQUAMOUS EPITHELIAL CELL URINE RARE /lpf (RARE/1+)
[2025-03-08 19:55] VITALS: BP 130/89; PULSE 105; RESP 18; TEMP 36.4; O2SAT 98
[2025-03-08] MEDS ORDERED: CLONIDINE 0.1MG TABLET PO PRN (21:30)
[2025-03-08] MEDS ORDERED: ACETAMINOPHEN 325MG TABLET PO PRN (21:30)
[2025-03-08] MEDS ORDERED: MAGNESIUM/ALUMINUM HYDROXIDE/SIMETHICONE 30ML UDC PO PRN (21:30)
[2025-03-08] MEDS ORDERED: IPRATROPIUM/ALBUTEROL 0.5-3(2.5)MG/3ML NEB HHN PRN (21:30)
[2025-03-08] MEDS ORDERED: ONDANSETRON HCL 4MG/2ML INJ IV PRN (21:30)
[2025-03-08] MEDS ORDERED: DOCUSATE SODIUM 100MG CAPSULE PO PRN (21:30)
[2025-03-08] MEDS ORDERED: GUAIFENESIN 200MG/10ML SUGAR FREE UDC PO PRN (21:30)
[2025-03-08] MEDS: ACETAMINOPHEN 325MG TABLET PO PRN (22:08)
[2025-03-08] MEDS: LORAZEPAM 2MG/ML UD SYRINGE IV PRN (22:14)
[2025-03-08] MEDS: MAGNESIUM 2 G PREMIX 50 ML IV NR (22:33)
[2025-03-08 23:19] VITALS: BP 130/84; PULSE 105; RESP 18; TEMP 36.4736
[2025-03-09 00:27] VITALS: BP 137/88; PULSE 105; RESP 19; TEMP 37; O2SAT 96
[2025-03-09] MEDS: KCL 20MEQ/100ML PREMIX 100 ML IV NR (00:44)
[2025-03-09] MEDS: MVI, ADULT NO.1 10 ML, FOLIC ACID 1 MG, THIAMINE HCL 100 MG in SODIUM CHLORIDE 0.9% 1,0... IV ONE (00:52)
[2025-03-09] MEDS: MAGNESIUM 4 G PREMIX 100 ML IV NR (03:47)
[2025-03-09 04:00] VITALS: BP 141/89; PULSE 110; RESP 19; TEMP 36.5; O2SAT 98
[2025-03-09 04:09] LABS: *AMPHETAMINES SCREEN URINE NEGATIVE (NEGATIVE); *BARBITURATES SCREEN URINE NEGATIVE (NEGATIVE); *BENZODIAZEPINES SCREEN URINE NEGATIVE (NEGATIVE); *COCAINE SCREEN URINE NEGATIVE (NEGATIVE); CANNABINOID URINE SCREEN NEGATIVE (NEGATIVE); ECSTASY MDMA SCREEN URINE NEGATIVE (NEGATIVE); METHADONE URINE SCREEN NEGATIVE (NEGATIVE); OPIATES URINE SCREEN NEGATIVE (NEGATIVE); PHENCYCLIDINE URINE SCREEN NEGATIVE (NEGATIVE)
[2025-03-09 05:55] LABS: FOLIC ACID (FOLATE) SERUM 4.61 ng/mL (>5.38)
[2025-03-09 05:57] LABS: VITAMIN B12 SERUM 1319 pg/mL (211-911)
[2025-03-09 06:28] LABS: HEPATITIS A AB IGM NEGATIVE (Negative)
[2025-03-09 06:29] LABS: HEPATITIS B CORE AB IGM NEGATIVE (Negative); HEPATITIS C AB NON REACTIVE (Neg) (Negative)
[2025-03-09 08:00] VITALS: BP 148/97; PULSE 130; RESP 21; TEMP 36.4; O2SAT 100
[2025-03-09] MEDS: MULTIVITAMINS,THER W-MINERALS TABLET PO SCH (08:47)
[2025-03-09] MEDS: FOLIC ACID 1MG TABLET PO SCH (08:48)
[2025-03-09] MEDS: PANTOPRAZOLE SODIUM 40 MG/VIAL IV SCH (08:48)
[2025-03-09] MEDS: THIAMINE HCL 100 MG/1 ML 2ML VIAL IM SCH (08:48)
[2025-03-09] MEDS: CEFTRIAXONE 1GM/50ML 50 ML IV SCH (08:48)
[2025-03-09 09:12] LABS: HEMATOCRIT. 28.0 % (42.0-52.0); HEMOGLOBIN. 8.5 g/dL (14.0-18.0); MEAN PLATELET VOLUME 8.3 fl (7.4-10.4); PLATELET 71 x1000/uL (130-400); RED BLOOD CELL COUNT 3.42 mill/uL (4.7-6.1); RED CELL DISTRIBUTION WIDTH 23.7 % (11.6-14.6)
[2025-03-09 09:34] LABS: CREATININE 0.5 mg/dL (0.6-1.3); TRIGLYCERIDE 203 mg/dL (0-150); UREA NITROGEN BLOOD < 5 mg/dL (9-23)
[2025-03-09 09:35] LABS: LDL CHOLESTEROL 80 mg/dL (5-100); PHOSPHORUS 1.8 mg/dL (2.5-4.9)
[2025-03-09 11:38] LABS: BAND% 11.0 % (1.0-6.0); LYMPHOCYTES % MANUAL 8.0 % (20.0-50.0); MONOCYTES % MANUAL 3.0 % (2.0-8.0); NEUTROPHILS % MANUAL 78.0 % (45.0-75.0)
[2025-03-09 11:39] LABS: PLATELET ESTIMATE DECREASED
[2025-03-09 12:00] VITALS: BP 122/81; PULSE 109; RESP 22; TEMP 36.6; O2SAT 100
[2025-03-09] MEDS: POTASSIUM CHLORIDE 20MEQ/PACKET PO NR (13:07)
[2025-03-09] MEDS: POTASSIUM CHLORIDE 20MEQ TABLET SR PO NR (14:00)
[2025-03-09 16:00] VITALS: BP 129/86; PULSE 110; RESP 21; TEMP 36.7; O2SAT 100
[2025-03-09 17:22] VITALS: BP 122/81; PULSE 109; RESP 22; TEMP 97.9
[2025-03-12] MEDS ORDERED: THIAMINE HCL 100MG TABLET PO SCH (09:00)
== END 2025-03-09 19:38 | disposition short-term general hospital (02) | DRG 74 ==
LOC: ER 13:21 → EDBEDREQ 13:45 → 7WST 18:07 → EDBEDREQ 18:08 → EDBEDREQTM 18:08 → ENRESERV 19:09
PROVIDERS: ADMIT Internal Medicine; ATTEND Internal Medicine
DX: G62.1 Alcoholic polyneuropathy (principal); E87.20 Acidosis, unspecified; N39.0 Urinary tract infection, site not specified; I20.9 Angina pectoris, unspecified; M54.12 Radiculopathy, cervical region; E83.51 Hypocalcemia; E83.42 Hypomagnesemia; E87.6 Hypokalemia; F10.129 Alcohol abuse with intoxication, unspecified; I10 Essential (primary) hypertension; E80.6 Other disorders of bilirubin metabolism; K70.9 Alcoholic liver disease, unspecified; E53.8 Deficiency of other specified B group vitamins; K76.0 Fatty (change of) liver, not elsewhere classified; Z55.6 Problems related to health literacy; Z79.899 Other long term (current) drug therapy
CPT/HCPCS: 36415; 71045; 71275; 76700; 80048; 80061; 80076; 80305; 80320; 81003; 82607; 82728; 82746; 83540; 83550; 83605; 83735; 84100; 84145; 84439; 84443; 84484; 85025; 85379; 86376; 86705; 86709; 87340; 93005; 93970; 96365; 96368; 99291; J0696; J2060; J2470; J3411; J3475; J3480; J3490; J7030; Q9967; G0480